=== PATIENT | male | born 1965 | race African-American/Black ===

== ENCOUNTER 2023-12-16 16:10 | Inpatient (IN) | payer OTHER, SELFPAY ==
[2023-12-16 16:40] LABS: #Basophils 0.03 10x3/uL (0.0-0.2); %Basophils 0.2 % (0.0-1.0); %Eosinophils 0.5 % (0.0-10.0); %Lymphocytes 38.3 % (21.0-51.0); %Monocytes 6.5 % (0.0-10.0); Hematocrit 43.9 % (42.0-52.0); Hemoglobin 14.4 g/dL (14.0-18.0); Mean Corpuscular HGB CONC 32.8 g/dL (32.0-36.0); Mean Corpuscular Volume 100.5 fL (78.0-98.0); Mean Platelet Volume 10.8 fL (7.4-10.4); Platelet Count 224 10x3/uL (130-400); RBC Distribution Width 12.4 % (11.5-14.5); Red Blood Cell (RBC) Count 4.37 mill/uL (4.70-6.10)
[2023-12-16 16:53] LABS: INR-International Normal Ratio 1.2; Lipase 43 U/L (8-78); Magnesium 1.4 mg/dL (1.6-2.6); Prothrombin Time 15.5 sec (12.0-14.7)
[2023-12-16 16:54] LABS: Acetaminophen Less than 10 mcg/mL (Less than 10); Alcohol Less than 10.0 mg/dL (Less than 10); PTT 25.9 sec (22.9-36.1); Salicylate Less than 8.0 mg/dL (Less than 8.0)
[2023-12-16 16:56] LABS: D-Dimer Test 0.29 mcg/mL (0.27-0.43)
[2023-12-16 16:58] LABS: ALT (SGPT) 30 U/L (8-55); AST (SGOT) 22 U/L (5-34); Albumin 4.5 g/dL (3.5-5.0); Alkaline Phosphatase 80 U/L (40-110); Anion Gap 42 mmol/L (10-20); BUN (Urea Nitrogen) 14 mg/dL (8.9-20.6); Bilirubin, Total 0.6 mg/dL (0.2-1.2); CK (CPK) 94 U/L (30-200); Calc. Creatinine Clearance 0 mL/min (70-130); Calcium 9.7 mg/dL (7.8-10.44); Carbon Dioxide Less than 8 mmol/L (22-29); Chloride 95 mmol/L (98-107); Estimated GFR 52; Globulin 3.4 g/dL (2.4-3.5); Glucose 436 mg/dL (70-105); Potassium 3.5 mmol/L (3.5-5.1); Protein, Total 7.9 g/dL (6.0-8.3); Sodium 138 mmol/L (136-145)
[2023-12-16 17:00] LABS: Troponin I 0.173 ng/mL (< 0.028)
[2023-12-16 17:08] LABS: Bacteria/HPF None Seen HPF (None Seen); Bilirubin Negative (Negative); Blood, Urine 1+ (Negative); CAUTI Indications for Culture Alt mental st,lethar; Clarity Turbid (Clear); Glucose, Urine (Dipstick) Greater than 1000 mg/dL (Negative); Ketone, Urine Negative (Negative); Leukocyte Negative Leu/uL (Negative); Nitrite Negative (Negative); Protein, Urine (Dipstick) 300 mg/dL (Neg-Trace); Specific Gravity, Urine 1.027 (1.002-1.036); Urobilinogen Normal mg/dL (Less than 2)
[2023-12-16 17:09] LABS: Sperm/HPF 2+ HPF (None Seen)
[2023-12-16 17:10] LABS: Urine Culture Reflex Yes Yes
[2023-12-16 17:11] LABS: Amphetamine Not Detected (NotDetected); Barbiturates Screen Not Detected (NotDetected); Benzodiazepine Screen Not Detected (NotDetected); Cocaine Metabolite Screen Not Detected (NotDetected); Methadone Not Detected (NotDetected); Methamphetamine Not Detected (NotDetected); Opiate Screen Not Detected (NotDetected); Oxycodone Screen Not Detected (NotDetected); Phencyclidine (PCP) Not Detected (NotDetected); THC/Cannabinoid Screen Not Detected (NotDetected); Tricyclic Screen Not Detected (NotDetected)
[2023-12-16 17:25] LABS: SARS-CoV-2 E Target Negative; SARS-CoV-2 N2 Target Negative; SARS-CoV-2 NAA Rapid Test Not Detected (NotDetected); SARS-CoV-2 RdRP gene Negative
[2023-12-16] MEDS ORDERED: Magnesium 2 GM/50 ML BAG (IN WATER) ONE (17:38)
[2023-12-16] MEDS ORDERED: levETIRAcetam 500 MG (5 mL) VIAL ONE ×2 (18:21→18:27)
[2023-12-16] MEDS ORDERED: Glucagon 1 MG/ML KIT IM PRN (19:10)
[2023-12-16] MEDS ORDERED: Dextrose 5% in Water 1,000 ML IV PRN (19:10)
[2023-12-16] MEDS ORDERED: Dextrose 50% Abboject 50 ML SYRINGE SLOW IVP PRN (19:10)
[2023-12-16 19:53] LABS: Analyzer IN Cardio ER; Calcium, Ionized (venous) 1.09 mmol/L (1.16-1.32); Chloride (VBG) 101 mmol/L (98-106); Hematocrit-VBG 39 % (42.0-52.0); Hemoglobin (Hb) 13.3 g/dL (13.2-17.3); Potassium (VBG) 3.04 mmol/L (3.70-5.30); Sodium 135 mmol/L (133-146); pH (venous) 7.394 (7.32-7.43)
[2023-12-16 20:02] LABS: Troponin I 0.184 ng/mL (< 0.028)
[2023-12-16 21:02] LABS: Lactic Acid 2.03 mmol/L (0.5-2.2)
[2023-12-16 21:10] VITALS: BMI 21.1
[2023-12-16] MEDS ORDERED: levETIRAcetam 500 MG (5 mL) VIAL SLOW IVP SCH (22:00)
[2023-12-16] MEDS: Insulin Regular, Human 100 UNIT/ML 10 ML VIAL SC PRN (22:49)
[2023-12-16] MEDS: Lactated Ringer's 1,000 ML IV SCH (22:50)
[2023-12-16] MEDS: Enoxaparin 60 MG (0.6 mL) SYRINGE SC SCH (22:50)
[2023-12-16] MEDS ORDERED: Lorazepam 2 MG/ML VIAL SLOW IVP PRN (23:13)
[2023-12-16 23:18] LABS: Hemoglobin A1c Greater than 14.0 % (4.0-6.0); Troponin I 0.198 ng/mL (< 0.028)
[2023-12-16 23:37] LABS: Free T4 (Free Thyroxine) 1.1 ng/dL (0.70-1.48)
[2023-12-17 04:44] LABS: ALT (SGPT) 20 U/L (8-55); AST (SGOT) 16 U/L (5-34); Albumin 3.4 g/dL (3.5-5.0); Alkaline Phosphatase 57 U/L (40-110); Anion Gap 11 mmol/L (10-20); BUN (Urea Nitrogen) 8 mg/dL (8.4-25.7); Bilirubin, Total 0.5 mg/dL (0.2-1.2); Calc. Creatinine Clearance 84 mL/min (70-130); Calcium 8.2 mg/dL (7.8-10.44); Carbon Dioxide 27 mmol/L (22-29); Chloride 107 mmol/L (98-107); Estimated GFR 99; Globulin 2.1 g/dL (2.4-3.5); Glucose 152 mg/dL (70-105); Potassium 2.6 mmol/L (3.5-5.1); Protein, Total 5.5 g/dL (6.0-8.3); Sodium 142 mmol/L (136-145)
[2023-12-17 04:54] LABS: #Basophils Less than 0.03 10x3/uL (0.0-0.2); %Basophils 0.1 % (0.0-1.0); %Eosinophils 0.5 % (0.0-10.0); %Lymphocytes 22.2 % (21.0-51.0); %Monocytes 8.2 % (0.0-10.0); %Neutrophils 68.9 % (42.0-75.0); Hematocrit 34.6 % (42.0-52.0); Mean Corpuscular HGB CONC 34.7 g/dL (32.0-36.0); Mean Corpuscular Hemoglobin 31.7 pg (27.0-31.0); Mean Corpuscular Volume 91.5 fL (78.0-98.0); Mean Platelet Volume 9.9 fL (7.4-10.4); Platelet Count 156 10x3/uL (130-400); RBC Distribution Width 12.4 % (11.5-14.5); Red Blood Cell (RBC) Count 3.78 mill/uL (4.70-6.10)
[2023-12-17] MEDS ORDERED: Potassium Chloride 20 MEQ TAB PO SCH (05:00)
[2023-12-17] MEDS: Potassium Chloride 20 MEQ in Premix 1 BAG IVPB SCH (05:36)
[2023-12-17] MEDS: levETIRAcetam 500 MG (5 mL) VIAL SLOW IVP SCH (08:20)
[2023-12-17] MEDS: Pantoprazole 40 MG VIAL IVP SCH (08:20)
[2023-12-17] MEDS: Enoxaparin 60 MG (0.6 mL) SYRINGE SC SCH (08:26)
[2023-12-17 10:53] LABS: Troponin I 0.222 ng/mL (< 0.028)
[2023-12-17 11:32] LABS: Anion Gap 20 mmol/L (10-20); BUN (Urea Nitrogen) 7 mg/dL (8.4-25.7); Calc. Creatinine Clearance 72 mL/min (70-130); Calcium 8.6 mg/dL (7.8-10.44); Carbon Dioxide 18 mmol/L (22-29); Chloride 104 mmol/L (98-107); Estimated GFR 85; Glucose 194 mg/dL (70-105); Potassium 3.5 mmol/L (3.5-5.1); Sodium 138 mmol/L (136-145)
[2023-12-17 17:41] LABS: Troponin I 0.188 ng/mL (< 0.028)
[2023-12-17] MEDS: Insulin Glargine 30 UNITS/0.3 ML VIAL SC SCH (17:49)
[2023-12-17] MEDS ORDERED: Enoxaparin 60 MG (0.6 mL) SYRINGE SC SCH (21:00)
[2023-12-17] MEDS: levETIRAcetam 500 MG TAB PO SCH (21:12)
[2023-12-17] MEDS: Lacosamide 50 mg Tablet PO SCH (21:12)
[2023-12-17] MEDS: Apixaban 5 MG TAB PO SCH (21:13)
[2023-12-17] MEDS: Insulin Regular, Human 100 UNIT/ML 10 ML VIAL SC PRN (21:23)
[2023-12-18 04:46] LABS: #Basophils Less than 0.03 10x3/uL (0.0-0.2); %Basophils 0.3 % (0.0-1.0); %Eosinophils 1.1 % (0.0-10.0); %Lymphocytes 26.9 % (21.0-51.0); %Monocytes 6.3 % (0.0-10.0); %Neutrophils 64.8 % (42.0-75.0); Hematocrit 33.6 % (42.0-52.0); Hemoglobin 11.5 g/dL (14.0-18.0); Mean Corpuscular HGB CONC 34.2 g/dL (32.0-36.0); Mean Corpuscular Volume 93.6 fL (78.0-98.0); Mean Platelet Volume 9.8 fL (7.4-10.4); Platelet Count 167 10x3/uL (130-400); RBC Distribution Width 12.7 % (11.5-14.5); Red Blood Cell (RBC) Count 3.59 mill/uL (4.70-6.10)
[2023-12-18 05:05] LABS: ALT (SGPT) 19 U/L (8-55); AST (SGOT) 14 U/L (5-34); Albumin 3.2 g/dL (3.5-5.0); Alkaline Phosphatase 57 U/L (40-110); Anion Gap 11 mmol/L (10-20); BUN (Urea Nitrogen) 9 mg/dL (8.4-25.7); Bilirubin, Total 0.5 mg/dL (0.2-1.2); Calc. Creatinine Clearance 81 mL/min (70-130); Calcium 8.2 mg/dL (7.8-10.44); Carbon Dioxide 26 mmol/L (22-29); Chloride 106 mmol/L (98-107); Estimated GFR 98; Globulin 2.3 g/dL (2.4-3.5); Glucose 216 mg/dL (70-105); Protein, Total 5.5 g/dL (6.0-8.3); Sodium 140 mmol/L (136-145)
[2023-12-18] MEDS: Zonisamide 100 MG CAP PO SCH (09:09)
[2023-12-18] MEDS: Potassium Chloride 20 MEQ TAB PO SCH (09:10)
[2023-12-18] MEDS: Insulin Glargine 30 UNITS/0.3 ML VIAL SC SCH (09:11)
[2023-12-18 11:46] VITALS: BP 106/74; TEMP 98.4
[2023-12-18] MEDS ORDERED: metFORMIN 500 MG TAB PO SCH (17:00)
[2023-12-18] MEDS ORDERED: Atorvastatin Calcium 40 MG TAB PO SCH (21:00)
[2023-12-19] MEDS ORDERED: Glimepiride 2 MG TAB PO SCH (07:30)
[2023-12-19] MEDS ORDERED: Furosemide 40 MG TAB PO SCH (09:00)
[2023-12-19] MEDS ORDERED: dilTIAZem ER 60 MG CAP PO SCH (09:00)
[2023-12-19] MEDS ORDERED: Potassium Chloride 10 MEQ TAB PO SCH (09:00)
== END 2023-12-18 14:45 | disposition home or self-care (01) | DRG 100 ==
LOC: ERS 16:10 → EDBD 20:21 → 2SE 20:21
PROVIDERS: ADMIT Family Medicine; ATTEND Family Medicine
PROC: 4A00X4Z Measurement of Central Nervous Electrical Activity, External Approach (ICD-10-PCS; principal; 2023-12-16)
DX: G40.409 Other generalized epilepsy and epileptic syndromes, not intractable, without status epilepticus (principal); G93.41 Metabolic encephalopathy; E87.20 Acidosis, unspecified; I48.91 Unspecified atrial fibrillation; E87.70 Fluid overload, unspecified; E11.65 Type 2 diabetes mellitus with hyperglycemia; E83.42 Hypomagnesemia; R79.89 Other specified abnormal findings of blood chemistry; E87.6 Hypokalemia; R53.81 Other malaise; Z98.890 Other specified postprocedural states; Z87.81 Personal history of (healed) traumatic fracture; Z79.84 Long term (current) use of oral hypoglycemic drugs
CPT/HCPCS: 36415; 36416; 51702; 70450; 70486; 71045; 74019; 80053; 80306; 80307; 81001; 82010; 82550; 82805; 83036; 83605; 83690; 83735; 83930; 84146; 84439; 84443; 84481; 84484; 85025; 85379; 85610; 85730; 86850; 86900; 86901; 87040; 87086; 93005; 93306; 94760; 95812; 96360; 96361; 96365; 96367; J1650; J1815; J1953; J2470; J3475; J3480; J7120; U0002